=== PATIENT | male | born 1985 | race Caucasian/White ===

== ENCOUNTER 2022-09-08 20:40 | Emergency (ER) | payer OTHER ==
[2022-09-08] MEDS ORDERED: Acetaminophen/Codeine 30-300mg Tablet ONE (20:58)
== END 2022-09-08 22:09 | disposition home or self-care (01) ==
LOC: BURERS 20:40
DX: S63.502A Unspecified sprain of left wrist, initial encounter (principal); S50.12XA Contusion of left forearm, initial encounter; W11.XXXA Fall on and from ladder, initial encounter